=== PATIENT | male | born 1940 | race Caucasian/White ===

== ENCOUNTER 2018-05-01 11:32 | Emergency (ER) | payer OTHER ==
[~2018-05-01] VITALS: Ht 172.7 cm; Wt 77.3 kg
[2018-05-01 11:56] VITALS: Ht 172.7 cm; Wt 77.3 kg
[2018-05-01] MEDS ORDERED: ZESTRIL10 MG PO (11:59)
[2018-05-01] MEDS ORDERED: FLOMAX0.4 MG PO (11:59)
[2018-05-01] MEDS ORDERED: ORAPRED ODT10 MG/TAB PO (12:01)
[2018-05-01 12:29] LABS: BASOPHILS 0.2 % (0-2); EOSINOPHILS 2.6 % (0-7); HEMATOCRIT 36.6 % (42.0-54.0); HEMOGLOBIN 11.8 g/dL (13.5-17.5); IMMATURE GRANULOCYTES 0.2 % (0-5); MCH 26.8 pg (26.0-34.0); MCHC 32.2 g/dL (31.0-37.0); MEAN PLATELET VOLUME 8.7 fL (7.4-10.4); MONOCYTES 2.9 % (2-11); NEUTROPHILS 83.1 % (40-80); PLATELET COUNT 162 10x3/uL (130-400); RBC 4.41 10x6/uL (4.20-6.10); RDW 17.9 % (11.5-14.5); WBC 5.1 10x3/uL (4.8-10.8)
[2018-05-01 12:43] LABS: APTT 30.5 SECONDS (22.8-39.4); INR 1.09 (0.85-1.17); PROTIME 13.7 SECONDS (11.6-15.0)
[2018-05-01 12:44] LABS: ALBUMIN 3.4 g/dL (3.4-5.0); ALKALINE PHOSPHATASE 161 U/L (46-116); ALT (SGPT) 26 U/L (10-68); BILIRUBIN - TOTAL 0.52 mg/dL (0.2-1.3); CALC OSMOLALITY 283 mosm/kg (275-300); CALCIUM 8.7 mg/dL (8.5-10.1); CARBON DIOXIDE 28.8 mmol/L (21.0-32.0); CHLORIDE - SERUM 106 mmol/L (98-107); D-DIMER-QUANTITATIVE 1.12 ug/mLFEU (0.20-0.54); GLUCOSE 93 mg/dL (74-106); POTASSIUM - SERUM 3.9 mmol/L (3.5-5.1); PROTEIN - SERUM 7.2 g/dL (6.4-8.2); SODIUM 141 mmol/L (136-145); UREA NITROGEN 20 mg/dL (7-18); eGFR NON AFRICAN AMERICAN 77 mL/min (90-120)
[2018-05-01 12:55] LABS: CREATINE KINASE 68 UL (21-232); MAGNESIUM - SERUM 1.9 mg/dL (1.8-2.4); TROPONIN-I < 0.017 ng/mL (0.000-0.060)
[2018-05-01 17:25] VITALS: BP 151/69
== END 2018-05-01 17:25 | disposition home or self-care (01) ==
LOC: D.ER 11:32
PROVIDERS: Family Medicine
DX: C61 Malignant neoplasm of prostate (principal); C79.51 Secondary malignant neoplasm of bone; R07.89 Other chest pain

== ENCOUNTER 2018-10-27 06:48 | Emergency (ER) | payer OTHER ==
[~2018-10-27] VITALS: Ht 172.7 cm; Wt 68.2 kg
[~2018-10-27 06:48] MED LIST: FLOMAX0.4 MG PO; ORAPRED ODT10 MG/TAB PO; ZESTRIL10 MG PO
[2018-10-27 06:49] VITALS: Ht 172.7 cm; Wt 68.2 kg
[2018-10-27] MEDS ORDERED: PLAQUENIL 200200 MG PO (06:51)
[2018-10-27] MEDS ORDERED: FOLIC ACID1 MG PO (06:52)
[2018-10-27] MEDS ORDERED: FUROSEMIDE20 MG PO (06:52)
[2018-10-27] MEDS ORDERED: VITAMIN D31000 UNIT PO (06:52)
[2018-10-27] MEDS ORDERED: OXYCODONE HCL5 M1 PO (06:53)
[2018-10-27] MEDS ORDERED: NEURONTIN 300300 MG (06:53)
[2018-10-27] MEDS ORDERED: ZANTAC300 MG PO (06:54)
[2018-10-27] MEDS ORDERED: MIRALAX17 GM PO (06:54)
[2018-10-27] MEDS ORDERED: MORPHINE S10 MG/5 ML PO (06:54)
[2018-10-27 07:23] LABS: BASOPHILS 0.2 % (0-2); EOSINOPHILS 9.9 % (0-7); HEMATOCRIT 31.1 % (42.0-54.0); HEMOGLOBIN 10.2 g/dL (13.5-17.5); IMMATURE GRANULOCYTES 0.2 % (0-5); LYMPHOCYTES 13.7 % (15-50); MCH 25.6 pg (26.0-34.0); MCHC 32.8 g/dL (31.0-37.0); MCV 78.1 fL (80.0-100.0); MEAN PLATELET VOLUME 8.9 fL (7.4-10.4); MONOCYTES 6.5 % (2-11); NEUTROPHILS 69.5 % (40-80); PLATELET COUNT 186 10x3/uL (130-400); RBC 3.98 10x6/uL (4.20-6.10); RDW 15.8 % (11.5-14.5); WBC 4.8 10x3/uL (4.8-10.8)
[2018-10-27 07:39] LABS: ALBUMIN 2.3 g/dL (3.4-5.0); ALKALINE PHOSPHATASE 76 U/L (46-116); ALT (SGPT) 28 U/L (10-68); BILIRUBIN - TOTAL 0.95 mg/dL (0.2-1.3); CALC OSMOLALITY 268 mosm/kg (275-300); CALCIUM 7.6 mg/dL (8.5-10.1); CHLORIDE - SERUM 95 mmol/L (98-107); CREATININE - SERUM 0.8 mg/dL (0.6-1.3); GLUCOSE 90 mg/dL (74-106); POTASSIUM - SERUM 2.5 mmol/L (3.5-5.1); PROTEIN - SERUM 6.6 g/dL (6.4-8.2); SODIUM 135 mmol/L (136-145); UREA NITROGEN 10 mg/dL (7-18); eGFR NON AFRICAN AMERICAN > 90 mL/min (90-120)
[2018-10-27 08:47] LABS: APPEARANCE CLEAR (CLEAR); BILIRUBIN NEGATIVE (NEGATIVE); COLOR YELLOW (YELLOW); GLUCOSE NEGATIVE (NEGATIVE); KETONE MODERATE mg/dL (NEGATIVE); NITRITE NEGATIVE (NEGATIVE); PROTEIN NEGATIVE (NEGATIVE); SPECIFIC GRAVITY 1.005 (1.005-1.020); UROBILINOGEN NORMAL (NORMAL)
[2018-10-27 10:52] VITALS: BP 159/74
== END 2018-10-27 11:16 | disposition other institution (70) ==
LOC: D.ER 06:48
PROVIDERS: Family Medicine
DX: J18.9 Pneumonia, unspecified organism (principal); R68.2 Dry mouth, unspecified; E87.6 Hypokalemia; R63.1 Polydipsia; C61 Malignant neoplasm of prostate; E11.9 Type 2 diabetes mellitus without complications

== ENCOUNTER 2019-05-29 16:51 | Inpatient (IN) | payer OTHER ==
[~2019-05-29] VITALS: Ht 172.7 cm; Wt 63.6 kg
[~2019-05-29 16:51] MED LIST changes: +FOLIC ACID1 MG PO; +FUROSEMIDE20 MG PO; +MIRALAX17 GM PO; +MORPHINE S10 MG/5 ML PO; +NEURONTIN 300300 MG; +OXYCODONE HCL5 M1 PO; +PLAQUENIL 200200 MG PO; +VITAMIN D31000 UNIT PO; +ZANTAC300 MG PO
[2019-05-29] MEDS ORDERED: ZYTIGA250 MG PO (17:06)
[2019-05-29] MEDS ORDERED: ALDACTONE25 MG PO (17:06)
[2019-05-29] MEDS ORDERED: VITAMIN B-12500 MCG PO (17:07)
[2019-05-29] MEDS ORDERED: CALCIUM 600 +1 EAC3 PO (17:08)
[2019-05-29] MEDS ORDERED: STOOL SOFTENER240 MG PO (17:08)
[2019-05-29] MEDS ORDERED: CYMBALTA30 MG PO (17:09)
[2019-05-29] MEDS ORDERED: FERROUS FUMARA324 MG PO (17:09)
[2019-05-29] MEDS ORDERED: NOVOLOG100 UNIT/1 SC (17:11)
[2019-05-29] MEDS ORDERED: MEGACE40 MG PO (17:13)
[2019-05-29] MEDS ORDERED: MILK OF MAGNESI30 ML PO (17:13)
[2019-05-29] MEDS ORDERED: MELATONIN 3 MG1 TAB PO (17:14)
[2019-05-29] MEDS ORDERED: LOPRESSOR25 MG PO (17:15)
[2019-05-29] MEDS ORDERED: MORPHINE IMMEDI15 MG PO (17:16)
[2019-05-29] MEDS ORDERED: MORPHINE SULFAT30 M4 PO (17:17)
[2019-05-29] MEDS ORDERED: TOBRADEX EYE DRO5 ML LEFT EYE (17:18)
[2019-05-29] MEDS ORDERED: SENNA LAXATIVE8.6 MG PO (17:19)
[2019-05-29] MEDS ORDERED: PREDNISONE5 MG PO ×2 (17:20)
[2019-05-29] MEDS ORDERED: RANITIDINE HCL150 M1 PO (17:20)
[2019-05-29] MEDS ORDERED: MULTI-DAY VITAM1 TAB PO (17:21)
[2019-05-29 17:30] VITALS: BP 128/61
[2019-05-29 18:28] LABS: BASOPHILS 0.2 % (0-2); EOSINOPHILS 2.2 % (0-7); HEMATOCRIT 25.9 % (42.0-54.0); HEMOGLOBIN 8.4 g/dL (13.5-17.5); IMMATURE GRANULOCYTES 0.4 % (0-5); LYMPHOCYTES 24.1 % (15-50); MCH 28.2 pg (26.0-34.0); MCHC 32.4 g/dL (31.0-37.0); MCV 86.9 fL (80.0-100.0); MEAN PLATELET VOLUME 8.5 fL (7.4-10.4); MONOCYTES 14.1 % (2-11); PLATELET COUNT 221 10x3/uL (130-400); RBC 2.98 10x6/uL (4.20-6.10); RDW 16.8 % (11.5-14.5); WBC 4.6 10x3/uL (4.8-10.8)
[2019-05-29 18:30] VITALS: BP 141/58
[2019-05-29 18:59] LABS: ALBUMIN 2.3 g/dL (3.4-5.0); ANION GAP 9.9 mmol/L (8-16); APTT 29.6 SECONDS (22.8-39.4); BILIRUBIN - TOTAL 0.24 mg/dL (0.2-1.3); CALCIUM 7.8 mg/dL (8.5-10.1); CARBON DIOXIDE 26.5 mmol/L (21.0-32.0); CREATININE - SERUM 1.1 mg/dL (0.6-1.3); INR 1.1 (0.85-1.17); POTASSIUM - SERUM 4.4 mmol/L (3.5-5.1); PROTEIN - SERUM 5.9 g/dL (6.4-8.2); PROTIME 13.7 SECONDS (11.6-15.0)
[2019-05-29 19:30] VITALS: BP 140/67
[2019-05-29 20:28] VITALS: BP 152/68
--- NOTE | 2019-05-29 20:30 | NUR ---
STOOL FOR GUIAC NEG. CONFIRMED WITH ERP.
--- NOTE | 2019-05-29 20:45 | NUR ---
[facility] CALLED [facility] NOT [facility] TO TAKE THE PT AT THIS TIME.
[2019-05-29 21:30] VITALS: BP 157/74
[2019-05-29 22:35] LABS: % SATURATION 19 % (15-55); IRON 34 ug/dl (35-150); TOTAL IRON BIND CAPACITY 176 ug/dl (260-445); UNSAT IRON BIND CAPACITY 142 ug/dl (150-375)
[2019-05-30] VITALS (10 sets, daily range): BP systolic 90–155; BP diastolic 48–77; Ht 172.7 cm; Wt 63.6 kg
[2019-05-30 08:28] LABS: BASOPHILS 0.2 % (0-2); EOSINOPHILS 2.4 % (0-7); IMMATURE GRANULOCYTES 0.6 % (0-5); MCH 28.6 pg (26.0-34.0); MCHC 33.6 g/dL (31.0-37.0); MEAN PLATELET VOLUME 8.7 fL (7.4-10.4); MONOCYTES 13.2 % (2-11); NEUTROPHILS 61.6 % (40-80); PLATELET COUNT 195 10x3/uL (130-400); RDW 16.2 % (11.5-14.5); WBC 5.4 10x3/uL (4.8-10.8)
[2019-05-30 08:33] LABS: CALCIUM 7.4 mg/dL (8.5-10.1); CARBON DIOXIDE 25.2 mmol/L (21.0-32.0); CHLORIDE - SERUM 104 mmol/L (98-107); CREATININE - SERUM 0.9 mg/dL (0.6-1.3); GLUCOSE 103 mg/dL (74-106); SODIUM 136 mmol/L (136-145); eGFR NON AFRICAN AMERICAN 87 mL/min (90-120)
[2019-05-30 08:34] LABS: CALC OSMOLALITY 272 mosm/kg (275-300); POTASSIUM - SERUM 3.6 mmol/L (3.5-5.1); UREA NITROGEN 15 mg/dL (7-18)
[2019-05-30 08:52] LABS: HEMATOCRIT 32.1 % (42.0-54.0); HEMOGLOBIN 10.8 g/dL (13.5-17.5); MCV 84.9 fL (80.0-100.0); RBC 3.78 10x6/uL (4.20-6.10)
--- NOTE | 2019-05-30 20:20 | NUR ---
AWAKE,ALERT,NO COMPLAITNS VOICED. RESP EVEN AND UNALBORED. NO DISTRESS NOTED. IV INFUSING TO RIGHT HAND WITHOUT REDNESS OR EDEMA NOTED. CL IN REACH
[2019-05-31 00:56] VITALS: BP 138/52
[2019-05-31 05:00] VITALS: BP 130/66
--- NOTE | 2019-05-31 06:07 | NUR ---
I have reviewed this patient and I concur with the Shift Assessment completed by the Licensed Practical Nurse today this shift.
--- NOTE | 2019-05-31 07:37 | NUR ---
AWAKE AND ALERT. ORIENTED X3. NO C/O AT THIS TIME. LUNGS ARE CLEAR BILATERALLY, NO COUGH NOTED. SKIN IS INTACT WITHOUT REDNESS. SCANT EDEMA NOTED TO BILATERAL LE. IV RIGHT FOREARM IS PATENT WITHOUT REDNESS AT INSERTION SITE. DENIES NEEDS.
[2019-05-31 08:30] LABS: BASOPHILS 0.2 % (0-2); EOSINOPHILS 0 % (0-7); HEMATOCRIT 34.2 % (42.0-54.0); HEMOGLOBIN 11.5 g/dL (13.5-17.5); IMMATURE GRANULOCYTES 0.4 % (0-5); LYMPHOCYTES 19.6 % (15-50); MCH 28.8 pg (26.0-34.0); MCHC 33.6 g/dL (31.0-37.0); MCV 85.7 fL (80.0-100.0); MEAN PLATELET VOLUME 8.4 fL (7.4-10.4); MONOCYTES 10.3 % (2-11); NEUTROPHILS 69.5 % (40-80); PLATELET COUNT 176 10x3/uL (130-400); RBC 3.99 10x6/uL (4.20-6.10); RDW 16.4 % (11.5-14.5); WBC 5.1 10x3/uL (4.8-10.8)
[2019-05-31 08:41] LABS: CALC OSMOLALITY 279 mosm/kg (275-300); CALCIUM 7.4 mg/dL (8.5-10.1); CARBON DIOXIDE 21.8 mmol/L (21.0-32.0); CHLORIDE - SERUM 106 mmol/L (98-107); GLUCOSE 108 mg/dL (74-106); POTASSIUM - SERUM 3.8 mmol/L (3.5-5.1); SODIUM 139 mmol/L (136-145); UREA NITROGEN 15 mg/dL (7-18); eGFR NON AFRICAN AMERICAN 77 mL/min (90-120)
--- NOTE | 2019-05-31 09:00 | NUR ---
ATE MOST OF BREAKFAST. UP TO BSC AND HAD LARGE MEDIUM BROWN STOOL, VERY FIRM. SKIN CARE PER STAFF.
[2019-05-31 09:22] VITALS: BP 147/93
--- NOTE | 2019-05-31 11:40 | MORECARE ---
CASE MANAGEMENT DISCHARGE SUMMARY PATIENT: PEDRO PARSONS UNIT: [id number] ADM DATE: 05/30/19 AGE: 79 : 41 SEX: M ROOM/BED: D.2204 AUTHOR: ALISSA SIMON PHYSICIAN: REFERRING PHYSICIAN: MARISSA KELLY MD DATE OF SERVICE: 05/31/19 Discharge Plan Patient Name: PEDRO PARSONS Facility: [facility]:[place] : 1940 Planned Disposition: Nursing Facility ARPAN Cert Anticipated Discharge Date: Discharge Date: Expected LOS: Initial Reviewer: [email or web address] Initial Review Date: 05/29/2019 Generated: 05/31/19 12:39 pm Comments DCP- Discharge Planning Updated by [email or web address]: Annabelle Yeager on 05/31/19 10:[address] Patient [place] [facility] [place] resident . I spoke with Viola. They will call me back with a bean picker machine operator time. Jenny clinical data coordinator aware that there is a + blood culture without any abx orders on his dc med rec. She will contact SPEECH AND DRAMA TEACHER DCP- Discharge Planning Updated by [email or web address]: Annabelle Yeager on 05/30/19 10:[address] spoke with [facility] the [facility] person, they said that someone has already called and placed him on the list Patient Name: PEDRO PARSONS Page [id number] at 1140 All edits/amendments must be made on the electronic document DICTATION DATE: 05/31/19 1139 CRIME SCENE INVESTIGATOR: QUYEN 05/31/19 1139 RPT#: [id number] DC DATE: STATUS: ADM IN [facility] [address] [place] [address] END OF REPORT
--- NOTE | 2019-05-31 11:53 | MORECARE ---
CASE MANAGEMENT DISCHARGE SUMMARY PATIENT: PEDRO PARSONS UNIT: [id number] ADM DATE: 05/30/19 AGE: 79 : 41 SEX: M ROOM/BED: D.2204 AUTHOR: ALISSA SIMON PHYSICIAN: REFERRING PHYSICIAN: MARISSA KELLY MD DATE OF SERVICE: 05/31/19 Discharge Plan Patient Name: PEDRO PARSONS Facility: [facility]:[place] : 1940 Planned Disposition: Nursing Facility ARPAN Cert Anticipated Discharge Date: Discharge Date: Expected LOS: Initial Reviewer: [email or web address] Initial Review Date: 05/29/2019 Generated: 05/31/19 12:53 pm Comments DCP- Discharge Planning Updated by [email or web address]: Annabelle Yeager on 05/31/19 10:[address] LAB ANIMAL TECHNICIAN has cancelled patient's discharge because of the positive blood culture. I called [facility], spoke with Yumiko to let her know that the DC has been cancelled DCP- Discharge Planning Updated by [email or web address]: Annabelle Yeager on 05/31/19 10:[address] [place] [facility] [place] [place] . I spoke with Viola. They will call me back with a pickling grader time. Jenny commercial loan coordinator aware that there is a + blood culture without any abx orders on his dc med rec. She will contact LAB ANIMAL TECHNICIAN DCP- Discharge Planning Updated by [email or web address]: Annabelle Yeager on 05/30/19 10:[address] spoke with [facility]man the [facility] person, they said that someone has already called and placed him on the list Last DP export: 05/31/19 10:40 a Patient Name: PEDRO PARSONS Page [phone] at 1153 All edits/amendments must be made on the electronic document DICTATION DATE: 05/31/19 1153 SCHOOL RESOURCE OFFICER: QUYEN 05/31/19 1153 RPT#: [id number] DC DATE: STATUS: ADM IN [address] [place] [address] END OF REPORT
--- NOTE | 2019-05-31 12:00 | NUR ---
FSBS 184. GIVEN SHCEDULED 10 UNITS HUMALOG SUB Q. DENIES NEEDS.
[2019-05-31 12:48] VITALS: BP 154/75
--- NOTE | 2019-05-31 15:00 | NUR ---
RESTING QUIETLY IN BED. INFORMED OF NEED FOR URINE SPECIMEN. WILL MONITOR.
[2019-05-31 17:22] VITALS: BP 139/71
--- NOTE | 2019-05-31 18:45 | NUR ---
ATE ABOUT HALF OF SUPPER TRAY. URINE SPECIMEN SENT TO LAB. NO CHANGES NOTED. DENIES NEEDS.
[2019-05-31 18:56] LABS: APPEARANCE CLEAR (CLEAR); BILIRUBIN NEGATIVE (NEGATIVE); COLOR YELLOW (YELLOW); GLUCOSE 50 mg/dL (NEGATIVE); KETONE NEGATIVE (NEGATIVE); NITRITE NEGATIVE (NEGATIVE); PROTEIN NEGATIVE (NEGATIVE); SPECIFIC GRAVITY 1.015 (1.005-1.020); UROBILINOGEN NORMAL (NORMAL)
--- NOTE | 2019-05-31 19:00 | NUR ---
SHIFT ASSESSMENT COMPLETE. RESPIRATIONS EVEN AND UNLABORED. VS STABLE AND AFEBRILE. NO VISUAL CUES OF DISTRESS NOTED. DENIES ANY OTHER NEEDS AT THIS TIME. WILL CONTINUE TO MONITOR.
[2019-05-31 20:00] VITALS: BP 180/69
[2019-06-01] VITALS: BP 150/62
[2019-06-01 04:00] VITALS: BP 151/73
[2019-06-01 08:58] VITALS: BP 141/74
--- NOTE | 2019-06-01 09:23 | MORECARE ---
CASE MANAGEMENT DISCHARGE SUMMARY PATIENT: PEDRO PARSONS UNIT: [id number] ADM DATE: 05/30/19 AGE: 79 : 41 SEX: M ROOM/BED: D.2204 AUTHOR: AURORADOC PHYSICIAN: REFERRING PHYSICIAN: MARISSA KELLY MD DATE OF SERVICE: 06/01/19 Discharge Plan Patient Name: PEDRO PARSONS Facility: [facility]:[place] : 1940 Planned Disposition: Nursing Facility ARPAN Cert Anticipated Discharge Date: Discharge Date: Expected LOS: Initial Reviewer: [email or web address] Initial Review Date: 05/29/2019 Generated: 06/01/19 10:23 am Comments DCP- Discharge Planning Updated by [email or web address]: Sierra Beyer on 06/01/19 8:[address] Patient Name: PEDRO PARSONS Admission Status: ER Accout number: [id number] Admission Date: 05-30-2019 : 1940 Admission Diagnosis: Attending: MARISSA KELLY Current LOS: 2 Anticipated DC Date: Planned Disposition: Nursing Facility ARPAN Cert Primary Insurance: [employer] Discharge Planning Comments: dc back to LTC bed Machine Icer: Sierra Beyer DCP- Discharge Planning Updated by [email or web address]: Annabelle Yeager on 05/31/19 10:[address] REGIONAL COORDINATOR has cancelled patient's discharge because of the positive blood culture. 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 I spoke with Yumiko and Adrienne. They will call me back with a machine operator picker time. Jenny digital account coordinator aware that there is a + blood culture without any abx orders on his dc med rec. She will contact REGIONAL COORDINATOR DCP- Discharge Planning Updated by [email or web address]: Annabelle Yeager on 05/30/19 10:[address] spoke with Iman the [facility] person, they said that someone has already called and placed him on the list Coverage Notice Reviewer: [email or web address] A Beyer Notice Issued Date-Time: 06/01/2019 9:21 Notice Type: IM Discharge Notice Notice Delivered To: Other Relationship to Patient: Sock Lining Stitcher Name: Delivery Method: HAND - Hand Delivered Sue Days: Prior Verbal Notification: Recipient Understood Notice: Recipient Signature: Med Rec Note Co-signed by Attending: Coverage Notice Comment: unable to sign due to medical status Last DP export: 05/31/19 10:54 a Patient Name: PEDRO PARSONS Page [phone] at 0923 All edits/amendments must be made on the electronic document DICTATION DATE: 06/01/19922 DOMESTIC FREIGHT FORWARDER: QUYEN 06/01/19922 RPT#: [id number] DC DATE: STATUS: ADM IN [facility] [address] [place] [address] END OF REPORT
[2019-06-01 12:32] VITALS: BP 179/66
--- NOTE | 2019-06-01 19:06 | MORECARE ---
CASE MANAGEMENT DISCHARGE SUMMARY PATIENT: PEDRO PARSONS UNIT: [id number] ADM DATE: 05/30/19 AGE: 79 : 41 SEX: M ROOM/BED: D.2204 AUTHOR: AURORADOC PHYSICIAN: REFERRING PHYSICIAN: MARISSA KELLY MD DATE OF SERVICE: 06/01/19 Discharge Plan Patient Name: PEDRO PARSONS Facility: [facility]:[place] : 1940 Planned Disposition: Nursing Facility ARPAN Cert Anticipated Discharge Date: 06/01/19 Discharge Date: 06/01/2019 Expected LOS: 2 Initial Reviewer: [email or web address] Initial Review Date: 05/29/2019 Generated: 06/01/19 8:06 pm Comments DCP- Discharge Planning Updated by [email or web address]: Niki Ramirez on 06/01/19 6:[address] LATE ENTRY 1100 THE FACILITY PROVIDED TRANSPORTATION BACK TO RESIDENTIAL AT NOON. DCP- Discharge Planning Updated by [email or web address]: Sierra Beyer on 06/01/19 8:[address] Patient Name: PEDRO PARSONS Admission Status: ER Accout number: [id number] Admission Date: 05-30-2019 : 1940 Admission Diagnosis: Attending: MARISSA KELLY Current LOS: 2 Anticipated DC Date: Planned Disposition: Nursing Facility ARPAN Cert Primary Insurance: [employer] Discharge Planning Comments: dc back to LTC bed Pretzel Twisting Machine Operator: Sierra Beyer DCP- Discharge Planning Updated by [email or web address]: Annabelle Yeager on 05/31/19 10:[address] BOATSWAIN MATE has cancelled patient's discharge because of the positive blood culture. 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 I spoke with Yumiko and Adrienne. They will call me back with a corn picker time. Jenny international exchange coordinator aware that there is a + blood culture without any abx orders on his dc med rec. She will contact BOATSWAIN MATE DCP- Discharge Planning Updated by [email or web address]: Annabelle Yeager on 05/30/19 10:[address] spoke with [facility] the [facility] person, they said that someone has already called and placed him on the list Coverage Notice Reviewer: [email or web address] Paulina Beyer Notice Issued Date-Time: 06/01/2019 9:21 Notice Type: IM Discharge Notice Notice Delivered To: Other Relationship to Patient: Elevator Constructor Hydraulic Name: Delivery Method: HAND - Hand Delivered Sue Days: Prior Verbal Notification: Recipient Understood Notice: Recipient Signature: Med Rec Note Co-signed by Attending: Coverage Notice Comment: unable to sign due to medical status Last DP export: 06/01/19 8:23 a Patient Name: PEDRO PARSONS Page [id number] at 1906 All edits/amendments must be made on the electronic document DICTATION DATE: 06/01/191905 SUPERVISOR ELEMENTARY EDUCATION: QUYEN 06/01/191905 RPT#: [id number] DC DATE:06/01/19 STATUS: DIS IN [facility] [address] [place] [address] END OF REPORT
[2019-06-03 19:08] LABS: AEROBE ID Preliminary report (())
== END 2019-06-01 12:43 | DRG 812 ==
LOC: D.ER 16:51 → D.MS 21:24 → OBSVTIME 21:24 → D.MS 05-30 12:40
PROVIDERS: Family Medicine; ADMIT Legal Medicine; ATTEND Legal Medicine
DX: D64.9 Anemia, unspecified (principal); C79.51 Secondary malignant neoplasm of bone; C61 Malignant neoplasm of prostate